=== PATIENT | male | born 1975 | race Caucasian/White ===

== ENCOUNTER 2016-10-14 16:47 | Emergency (ER) | payer OTHER ==
[2016-10-14 16:59] VITALS: RESP 18; TEMP 98.2
[2016-10-14] MEDS ORDERED: IBUPROFEN 600 MG TAB PO ONE (17:46)
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
[2016-10-14 19:56] VITALS: BP 118/64; PULSE 61; O2SAT 93
== END 2016-10-14 19:56 | disposition home or self-care (01) ==
DX: S42.021A Displaced fracture of shaft of right clavicle, initial encounter for closed fracture (principal); S16.1XXA Strain of muscle, fascia and tendon at neck level, initial encounter; V86.59XA Driver of other special all-terrain or other off-road motor vehicle injured in nontraffic accident, initial encounter; Y93.55 Activity, bike riding
CPT/HCPCS: A4565